=== PATIENT | male | born 1980 | race African-American/Black ===

== ENCOUNTER 2016-09-06 12:15 | Emergency (ER) | payer MEDICAID, OTHER ==
[~2016-09-06] VITALS: Ht 172.7 cm; Wt 76.8 kg
[2016-09-06 12:19] VITALS: Ht 172.7 cm; Wt 76.8 kg
[2016-09-06 13:04] LABS: ADD UMIC YES; URINE BILIRUBIN (Dip) NEGATIVE (NEGATIVE); URINE BLOOD (Dip) NEGATIVE (NEGATIVE); URINE COLOR LT. YELLOW (YELLOW); URINE GLUCOSE (Dip) NEGATIVE (NEGATIVE); URINE KETONES (Dip) NEGATIVE (NEGATIVE); URINE LEUKOCYTE ESTERASE (Dip) NEGATIVE (NEGATIVE); URINE NITRITE (Dip) NEGATIVE (NEGATIVE); URINE TOTAL PROTEIN (Dip) TRACE (NEGATIVE); URINE UROBILINOGEN (Dip) 0.2 E.U./dL (0.1-1.0)
[2016-09-06 13:27] LABS: BARBITURATES Negative (NEGATIVE)
[2016-09-06 13:28] LABS: CANNABINOIDS Negative (NEGATIVE)
[2016-09-06 13:30] LABS: BASOPHILS % 0.6 % (0.0-2.0); EOSINOPHILS # 0.2 10^3/ul (0.0-0.5); EOSINOPHILS % 3.2 % (0.0-7.0); HEMATOCRIT 42.1 % (42.0-52.0); HEMOGLOBIN 14.1 g/dl (14.0-18.0); LYMPHOCYTES # 1.4 10^3/ul (0.8-2.9); LYMPHOCYTES % 23.9 % (15.0-51.0); MEAN CORPUSCULAR HEMOGLOBIN 30.6 pg (29.0-33.0); MEAN CORPUSCULAR HGB CONC 33.5 g/dl (32.0-37.0); MEAN CORPUSCULAR VOLUME 91.3 fl (82.0-101.0); MEAN PLATELET VOLUME 8.7 fl (7.4-10.4); MONOCYTE # 0.4 10^3/ul (0.3-0.9); MONOCYTES % 6.6 % (0.0-11.0); NEUTROPHIL # 3.8 10^3/ul (1.6-7.5); NEUTROPHILS % 65.7 % (39.0-77.0); PLATELET COUNT 253 10^3/UL (140-440); RED BLOOD COUNT 4.61 10^6/ul (4.70-6.10); RED CELL DISTRIBUTION WIDTH 12.5 % (11.5-14.5); UNCORRECTED WBC 5.8 10^3/ul (4.8-10.8); WHITE BLOOD COUNT 5.8 10^3/ul (4.8-10.8)
[2016-09-06 13:31] LABS: CONDITION 1
[2016-09-06 13:35] LABS: BENZODIAZEPINES Negative (NEGATIVE); COCAINE Negative (NEGATIVE); OPIATES Negative (NEGATIVE)
[2016-09-06 13:37] LABS: URINE RBCS NONE SEEN /HPF (0)
[2016-09-06 13:50] LABS: ALBUMIN 3.9 g/dl (3.3-4.9)
[2016-09-06 13:51] LABS: CHLORIDE 102 mmol/L (97-110); POTASSIUM 4.3 mmol/L (3.5-5.1); SODIUM 141 mmol/L (135-144)
[2016-09-06 13:53] LABS: ALBUMIN/GLOBULIN RATIO 1.02; ANION GAP 14 (8-16); ASPARTATE AMINO TRANSFERASE 15 IU/L (15-46); BILIRUBIN,INDIRECT 0.1 mg/dl (0-1.1); BILIRUBIN,TOTAL 0.1 mg/dl (0.2-1.3); CARBON DIOXIDE 29 mmol/L (21-31); CREATININE 1.15 mg/dl (0.61-1.24); TOTAL PROTEIN 7.7 g/dl (6.1-8.1)
[2016-09-06 13:54] LABS: ALANINE AMINOTRANSFERASE 25 IU/L (13-69); ALKALINE PHOSPHATASE 51 IU/L (42-121); BLOOD UREA NITROGEN 17 mg/dl (7-20); CALCIUM 8.9 mg/dl (8.4-10.2); GLUCOSE 94 mg/dl (70-220)
--- NOTE | 2016-09-06 14:01 | ERA ---
ER Documentation Chief Complaint Date/Time DATE: 09/06/16 Chief Complaint SUICIDAL IDEATION HPI The patient is a 36-year-old male, presenting to the ER because of acute suicidal ideation. He does not have any plan. He is compliant with medication , complains of auditory hallucinations that asked him to kill himself. He has recent loss of his fiance. He denies headache, neck pain, chest pain, dyspnea , abdominal pain, vomiting, dysuria, diarrhea. He smokes a pack a day, denies drinking, denies illicit drug Past medical history: Bipolar disorder, schizophrenia, depression, anxiety Past surgical history: None ROS All systems reviewed and are negative except as per history of present illness. Medications Home Meds Unable to Obtain Active Prescriptions or Reported Meds Allergies Allergies: Coded Allergies: Unknown: Unable to obtain (Unverified , 09/06/16) PMhx/Soc Medical and Surgical Hx: pt denies Medical Hx, pt denies Surgical Hx Hx Cardiac Disorders: Yes (HTN, HEART MURMUR) Hx Miscellaneous Medical Probl: Yes (DEPRESSION, SCHIZO, DEPRESSION.) Hx Alcohol Use: No Hx Substance Use: No Hx Tobacco Use: No Smoking Status: Never smoker Physical Exam Vitals Vital Signs Date Time Temp Pulse Resp B/P Pulse Ox O2 Delivery O2 Flow Rate FiO2 09/06/16 12:19 98.8 88 19 136/83 98 Physical Exam Const: No acute distress. Head: Atraumatic. Eyes: Normal Conjunctiva. ENT: Normal External Ears, Nose and Mouth. Neck: Full range of motion. No meningismus. Resp: Clear to auscultation bilaterally. Cardio: Regular rate and rhythm, no murmurs. Abd: Soft, non distended, normal bowel sounds, non tender. Skin: No petechiae or rashes. Back: No midline or flank tenderness. Ext: No cyanosis, or edema. Neur: Awake and alert. No focal deficit Psych: Depressed and suicidal Result Diagram: 09/06/16 1250 09/06/16 1250 Results 24 hrs Laboratory Tests Test 09/06/16 12:30 09/06/16 12:50 Urine Amphetamines Screen Negative Urine Barbiturates Negative Urine Benzodiazepines Screen Negative Urine Bilirubin NEGATIVE Urine Cannabinoids Negative Urine Clarity CLEAR Urine Cocaine Screen Negative Urine Color LT. YELLOW Urine Glucose NEGATIVE% Urine Hemoglobin NEGATIVE Urine Ketones NEGATIVE Urine Leukocyte Esterase NEGATIVE Urine Microscopic RBC NONE SEEN/HPF Urine Microscopic WBC 0-2/HPF Urine Nitrite NEGATIVE Urine Opiates Screen Negative Urine Specific [place] 1.025 Urine Total Protein TRACE Urine Urobilinogen 0.2 E.U./dL Urine pH 7.0 Acetaminophen Level < 10.0ug/ml Alanine Aminotransferase (ALT/SGPT) 25IU/L Albumin 3.9g/dl Albumin/Globulin Ratio 1.02 Alkaline Phosphatase 51IU/L Anion Gap 14 Aspartate Amino Transf (AST/SGOT) 15IU/L Basophils # 0.010^3/ul Basophils % 0.6% Blood Urea Nitrogen 17mg/dl Calcium Level 8.9mg/dl Carbon Dioxide Level 29mmol/L Chloride Level 102mmol/L Creatinine 1.15mg/dl Direct Bilirubin 0.00mg/dl Eosinophils # 0.210^3/ul Eosinophils % 3.2% Ethyl Alcohol Level < 10.0mg/dl Globulin 3.80g/dl Glucose Level 94mg/dl Hematocrit 42.1% Hemoglobin 14.1g/dl Indirect Bilirubin 0.1mg/dl Lymphocytes # 1.410^3/ul Lymphocytes % 23.9% Mean Corpuscular Hemoglobin 30.6pg Mean Corpuscular Hemoglobin Concent 33.5g/dl Mean Corpuscular Volume 91.3fl Mean Platelet Volume 8.7fl Monocytes # 0.410^3/ul Monocytes % 6.6% Neutrophils # 3.810^3/ul Neutrophils % 65.7% Nucleated Red Blood Cells # 0.010^3/ul Nucleated Red Blood Cells % 0.0/100WBC Platelet Count 69479^3/UL Potassium Level 4.3mmol/L Red Blood Count 4.6110^6/ul Red Cell Distribution Width 12.5% Salicylates Level < 1.0mg/dl Sodium Level 141mmol/L Total Bilirubin 0.1mg/dl Total Protein 7.7g/dl White Blood Count 5.810^3/ul Procedures/MDM MEDICAL MAKING DECISION: The patient is a 36-year-old male, presenting with acute suicidal ideation. The differential diagnoses considered include but are not limited to depression, stress, decompensated psychiatric unit Departure Diagnosis: Primary Impression: Suicidal ideation Additional Impression: Depression Condition: Stable Comments He is awaiting for telepsychiatrist evaluation The patient's blood pressure was elevated (>120/80) but appears stable without evidence of hypertension emergency or urgency. The patient was counseled about the risks of hypertension and urged to pursue outpatient monitoring and therapy within a week with their primary care physician. BARBARA CHAN MD Sep 06, 2016 14:00
[2016-09-06 14:26] LABS: ACETAMINOPHEN < 10.0 ug/ml (10.0-30.0); ETHANOL < 10.0 mg/dl; SALICYLATE < 1.0 mg/dl (5.0-30.0)
--- NOTE | 2016-09-06 16:14 | PSY ---
Date/Time of Note Date/Time of Note DATE: 09/06/16 TIME: 16:08 Psychiatric Subjective Eval Consent Pt consented to telemedicine: Yes Subjective Evaluation Patient location: emergency Chief Complaint: SUICIDAL IDEATION History of present illness 36 yo homeless male with hx schizoaffective d/o self presenting to ED c/o SI with a plan to cut himself. Pt is depressed because he lost custody of his daughter and his fiancee 01/10. Pt was discharged from inpt psych one week ago, he says, he is meds complainant, reprots active si, depression, feeling hopeless, helpless, + AH, + Pi, no Vh, Pt is on Risperdal, Depakote, Remeron. Past psychiatric history multiple inpt, hx past SA Hospitalization: Suicidal Attempt(s) Family History denies Medical history Problems Medical Problems: (1) Depression Status: Acute (2) Suicidal ideation Status: Acute Allergies: Coded Allergies: Unknown: Unable to obtain (Unverified , 09/06/16) Substance Abuse Substance abuse history: Yes Prior substance abuse treatmen: Yes Social History Marital status: single DPA/Conservatorship: No Occupation/Correction: unemployed, homeless Psychiatric Objective Eval Mental Status Examination: Appearance: Disheveled Eye Contact: Good Psychomotor Activity: Normal Behavior: Cooperative Speech: Clear AFFECT: Depressed Mood: Depressed Though Process: Linear Thought Content: Hallucinations Suicidal: Yes Homicidal: No Orientation: x3 Cognition: Alert Insight: Impared Judgement: Impared Laboratory Results Laboratory Tests Test 09/06/16 12:30 09/06/16 12:50 Urine Amphetamines Screen Negative Urine Barbiturates Negative Urine Benzodiazepines Screen Negative Urine Bilirubin NEGATIVE Urine Cannabinoids Negative Urine Clarity CLEAR Urine Cocaine Screen Negative Urine Color LT. YELLOW Urine Glucose NEGATIVE% Urine Hemoglobin NEGATIVE Urine Ketones NEGATIVE Urine Leukocyte Esterase NEGATIVE Urine Microscopic RBC NONE SEEN/HPF Urine Microscopic WBC 0-2/HPF Urine Nitrite NEGATIVE Urine Opiates Screen Negative Urine Specific [place] 1.025 Urine Total Protein TRACE Urine Urobilinogen 0.2 E.U./dL Urine pH 7.0 Acetaminophen Level < 10.0ug/ml Alanine Aminotransferase (ALT/SGPT) 25IU/L Albumin 3.9g/dl Albumin/Globulin Ratio 1.02 Alkaline Phosphatase 51IU/L Anion Gap 14 Aspartate Amino Transf (AST/SGOT) 15IU/L Basophils # 0.010^3/ul Basophils % 0.6% Blood Urea Nitrogen 17mg/dl Calcium Level 8.9mg/dl Carbon Dioxide Level 29mmol/L Chloride Level 102mmol/L Creatinine 1.15mg/dl Direct Bilirubin 0.00mg/dl Eosinophils # 0.210^3/ul Eosinophils % 3.2% Ethyl Alcohol Level < 10.0mg/dl Globulin 3.80g/dl Glucose Level 94mg/dl Hematocrit 42.1% Hemoglobin 14.1g/dl Indirect Bilirubin 0.1mg/dl Lymphocytes # 1.410^3/ul Lymphocytes % 23.9% Mean Corpuscular Hemoglobin 30.6pg Mean Corpuscular Hemoglobin Concent 33.5g/dl Mean Corpuscular Volume 91.3fl Mean Platelet Volume 8.7fl Monocytes # 0.410^3/ul Monocytes % 6.6% Neutrophils # 3.810^3/ul Neutrophils % 65.7% Nucleated Red Blood Cells # 0.010^3/ul Nucleated Red Blood Cells % 0.0/100WBC Platelet Count 64665^3/UL Potassium Level 4.3mmol/L Red Blood Count 4.6110^6/ul Red Cell Distribution Width 12.5% Salicylates Level < 1.0mg/dl Sodium Level 141mmol/L Total Bilirubin 0.1mg/dl Total Protein 7.7g/dl White Blood Count 5.810^3/ul Assessment and Plan Assessment/Diagnosis [place] I: SCHIZOAFFECTIVE DISORDER [place] II: DEFERED [place] III: NAD [place] IV: SEVERE [place] V: GAF 25 Recommendation/Plan Medication Management PLEASE VERIFY PT'S LATEST DISCHARGE MEDS AND CONTINUE WHILE IN ED; PLEASE CHECK VPA LEVEL Follow-up/Disposition DTS; PLEASE TRANSFER TO INPT PSYCH. PT IS WILLING TO ACCEPT INPT CARE [facility]. JAMES MCINTYRE MD Sep 06, 2016 16:14
[2016-09-06 17:23] VITALS: BP 113/65; PULSE 58; RESP 18; TEMP 97.8
== END 2016-09-06 19:52 ==
LOC: E/R 12:15
DX: F32.9 Major depressive disorder, single episode, unspecified (principal); R45.851 Suicidal ideations; I10 Essential (primary) hypertension
CPT/HCPCS: 36415; 80053; 80164; 80306; 80307; 81001; 85025; Z7502; 81003; 99285

== ENCOUNTER 2016-09-08 14:24 | Emergency (ER) | payer OTHER ==
[~2016-09-08] VITALS: Wt 81.8 kg
[2016-09-08 14:32] VITALS: Wt 81.8 kg
[2016-09-08 17:06] LABS: BASOPHILS % 0.7 % (0.0-2.0); EOSINOPHILS # 0.2 10^3/ul (0.0-0.5); EOSINOPHILS % 2.5 % (0.0-7.0); HEMATOCRIT 45.9 % (42.0-52.0); HEMOGLOBIN 15.4 g/dl (14.0-18.0); LYMPHOCYTES # 1.5 10^3/ul (0.8-2.9); MEAN CORPUSCULAR HEMOGLOBIN 30.6 pg (29.0-33.0); MEAN CORPUSCULAR HGB CONC 33.5 g/dl (32.0-37.0); MEAN CORPUSCULAR VOLUME 91.4 fl (82.0-101.0); MEAN PLATELET VOLUME 8.9 fl (7.4-10.4); MONOCYTE # 0.5 10^3/ul (0.3-0.9); NEUTROPHIL # 4.4 10^3/ul (1.6-7.5); NEUTROPHILS % 66.8 % (39.0-77.0); PLATELET COUNT 282 10^3/UL (140-440); RED BLOOD COUNT 5.02 10^6/ul (4.70-6.10); RED CELL DISTRIBUTION WIDTH 12.4 % (11.5-14.5); UNCORRECTED WBC 6.5 10^3/ul (4.8-10.8); WHITE BLOOD COUNT 6.5 10^3/ul (4.8-10.8)
[2016-09-08 17:09] LABS: ADD UMIC YES; URINE BILIRUBIN (Dip) NEGATIVE (NEGATIVE); URINE BLOOD (Dip) NEGATIVE (NEGATIVE); URINE COLOR LT. YELLOW (YELLOW); URINE GLUCOSE (Dip) NEGATIVE (NEGATIVE); URINE KETONES (Dip) NEGATIVE (NEGATIVE); URINE LEUKOCYTE ESTERASE (Dip) NEGATIVE (NEGATIVE); URINE NITRITE (Dip) NEGATIVE (NEGATIVE); URINE TOTAL PROTEIN (Dip) 1+ (NEGATIVE); URINE UROBILINOGEN (Dip) 1.0 E.U./dL (0.1-1.0)
[2016-09-08 17:12] LABS: CONDITION 1
--- NOTE | 2016-09-08 17:18 | ERD ---
ER Documentation Chief Complaint Date/Time DATE: 09/08/16 TIME: 17:13 Chief Complaint depression, states SI HPI Patient is a 36-year-old -[place] male who reports complaining of depression with suicidal ideation. He states he is hearing voices which are telling him to kill himself. He says he is depressed because he lost custody of his daughter recently. He plans to cut his wrists. He says he has attempted to kill himself in the past. He also admits to using alcohol and drugs. He denies any recent fever, chest pain, shortness of breath, coughing, congestion, abdominal pain, nausea, vomiting, diarrhea, abnormal rashes or bruising, headache, paresthesias, or weakness. Nothing seems to help him or make this worse. As a separate complaint the patient mentions that he would like for me to look at a lesion that he has on his penis has apparently been there for several months. ROS All systems reviewed and are negative except as per history of present illness. Medications Home Meds Unable to Obtain Active Prescriptions or Reported Meds Allergies Allergies: Coded Allergies: No Known Allergy (Unverified , 09/06/16) PMhx/Soc Hx Cardiac Disorders: Yes (HTN, HEART MURMUR) Hx Miscellaneous Medical Probl: Yes (DEPRESSION, SCHIZO, DEPRESSION.) Hx Alcohol Use: No Hx Substance Use: No Hx Tobacco Use: No FmHx Family History: No coronary disease Physical Exam Vitals Vital Signs Date Time Temp Pulse Resp B/P Pulse Ox O2 Delivery O2 Flow Rate FiO2 09/08/16 14:32 98.8 77 20 132/80 98 Physical Exam Const: Well-developed thin -[place] male sitting in the chair covered with tattoos, in no acute distress. Head: Atraumatic normocephalic Eyes: Normal Conjunctiva ENT: Normal External Ears, Nose and Mouth. Neck: Full range of motion..~ No meningismus. Resp: Clear to auscultation bilaterally Cardio: Regular rate and rhythm, 2/6 systolic ejection murmur Abd: Soft, non tender, non distended. Normal bowel sounds Skin: No petechiae or rashes Back: No midline or flank tenderness Ext: No cyanosis, or edema Neur: Awake and alert oriented 3 with a GCS of 15, moves all extremities equally : Patient has a non-distinct lesion at the base of the head of the penis Result Diagram: 09/08/16 1645 09/08/16 1645 Results 24 hrs Laboratory Tests Test 09/08/16 16:45 09/08/16 16:50 Acetaminophen Level < 10.0ug/ml Alanine Aminotransferase (ALT/SGPT) 22IU/L Albumin Pending Albumin/Globulin Ratio Pending Alkaline Phosphatase 59IU/L Anion Gap 19 Aspartate Amino Transf (AST/SGOT) 16IU/L Basophils # 0.010^3/ul Basophils % 0.7% Blood Urea Nitrogen 20mg/dl Calcium Level 9.1mg/dl Carbon Dioxide Level 25mmol/L Chloride Level 101mmol/L Creatinine 1.23mg/dl Direct Bilirubin 0.00mg/dl Eosinophils # 0.210^3/ul Eosinophils % 2.5% Ethyl Alcohol Level < 10.0mg/dl Globulin Pending Glucose Level 82mg/dl Hematocrit 45.9% Hemoglobin 15.4g/dl Indirect Bilirubin 0.1mg/dl Lymphocytes # 1.510^3/ul Lymphocytes % 23.0% Mean Corpuscular Hemoglobin 30.6pg Mean Corpuscular Hemoglobin Concent 33.5g/dl Mean Corpuscular Volume 91.4fl Mean Platelet Volume 8.9fl Monocytes # 0.510^3/ul Monocytes % 7.0% Neutrophils # 4.410^3/ul Neutrophils % 66.8% Nucleated Red Blood Cells # 0.010^3/ul Nucleated Red Blood Cells % 0.0/100WBC Platelet Count 19233^3/UL Potassium Level 4.3mmol/L Red Blood Count 5.0210^6/ul Red Cell Distribution Width 12.4% Salicylates Level < 1.0mg/dl Sodium Level 141mmol/L Total Bilirubin 0.1mg/dl Total Protein 8.4g/dl White Blood Count 6.510^3/ul Urine Bacteria FEW Urine Bilirubin NEGATIVE Urine Clarity SLIGHTLY CLOUDY Urine Color LT. YELLOW Urine Glucose NEGATIVE% Urine Hemoglobin NEGATIVE Urine Ketones NEGATIVE Urine Leukocyte Esterase NEGATIVE Urine Microscopic RBC NONE SEEN/HPF Urine Microscopic WBC 0-2/HPF Urine Mucus MODERATE Urine Nitrite NEGATIVE Urine Specific [place] 1.025 Urine Sperm FEW Urine Total Protein 1+ Urine Urobilinogen 1.0 E.U./dL Urine pH 6.0 Procedures/MDM Medical decision making: Depression, suicidal ideation, alcohol abuse, drug abuse, nonspecific lesion of the penis This is a 36-year-old -[place] male who presents with depression and suicidal ideation. Once he is cleared from a medical standpoint we will transfer him to a psychiatric facility for further treatment and evaluation of his depression and suicidal ideation. He has been advised that he should follow -up with the urologist for further evaluation of this non-descriptive lesion at the head of his penis. I spoke with the psychiatrist on-call. She just evaluated this patient on Monday and states that she made a recommendation to have him committed at that time. She says her recommendation is unchanged. Patient will be transferred to a psychiatric facility as soon as one is available. 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
[2016-09-08 17:38] LABS: CHLORIDE 101 mmol/L (97-110); POTASSIUM 4.3 mmol/L (3.5-5.1); SODIUM 141 mmol/L (135-144)
[2016-09-08 17:38] LABS: URINE RBCS NONE SEEN /HPF (0)
[2016-09-08 17:39] LABS: BACTERIA,URINE FEW; MUCUS,URINE MODERATE; SPERM,URINE FEW
[2016-09-08 17:40] LABS: ANION GAP 19 (8-16); ASPARTATE AMINO TRANSFERASE 16 IU/L (15-46); BILIRUBIN,INDIRECT 0.1 mg/dl (0-1.1); BILIRUBIN,TOTAL 0.1 mg/dl (0.2-1.3); CARBON DIOXIDE 25 mmol/L (21-31); CREATININE 1.23 mg/dl (0.61-1.24); TOTAL PROTEIN 8.4 g/dl (6.1-8.1)
[2016-09-08 17:41] LABS: ALANINE AMINOTRANSFERASE 22 IU/L (13-69); ALKALINE PHOSPHATASE 59 IU/L (42-121); BLOOD UREA NITROGEN 20 mg/dl (7-20); CALCIUM 9.1 mg/dl (8.4-10.2); GLUCOSE 82 mg/dl (70-220)
[2016-09-08 17:43] LABS: ACETAMINOPHEN < 10.0 ug/ml (10.0-30.0); ETHANOL < 10.0 mg/dl; SALICYLATE < 1.0 mg/dl (5.0-30.0)
[2016-09-08 17:46] LABS: CANNABINOIDS Negative (NEGATIVE)
[2016-09-08 17:54] LABS: BARBITURATES Negative (NEGATIVE); BENZODIAZEPINES Negative (NEGATIVE); COCAINE Negative (NEGATIVE); OPIATES Negative (NEGATIVE)
[2016-09-08 18:00] LABS: ALBUMIN 4.4 g/dl (3.3-4.9)
[2016-09-08] MEDS ORDERED: DIVA500T7 PO (18:08)
[2016-09-08] MEDS ORDERED: QUET100T25 PO (18:08)
[2016-09-08] MEDS ORDERED: ALPR2TAB PO (18:09)
[2016-09-08] MEDS ORDERED: BUPR-75 PO (18:09)
[2016-09-08] MEDS ORDERED: BENA5TAB2 PO (18:12)
[2016-09-08 22:52] VITALS: BP 144/88; PULSE 56; RESP 20; TEMP 98.8
== END 2016-09-08 22:59 ==
LOC: E/R 14:24
DX: F20.9 Schizophrenia, unspecified (principal); I10 Essential (primary) hypertension; F17.210 Nicotine dependence, cigarettes, uncomplicated
CPT/HCPCS: 36415; 80053; 80306; 80307; 81001; 85025; Z7502; 81003; 99285